=== PATIENT | male | born 1985 | race Caucasian/White ===

== ENCOUNTER 2019-06-10 16:54 | Emergency (ER) | payer OTHER ==
[~2019-06-10] VITALS: Ht 175.3 cm; Wt 65.8 kg
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
[2019-06-10 17:09] VITALS: BP 118/73
[2019-06-10] MEDS ORDERED: Ketorolac 30mg Inj IM ONE (17:45)
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
[2019-06-10] MEDS ORDERED: DICLOFENAC SODI50 MG ORAL (17:56)
[2019-06-10] MEDS ORDERED: ROBAXIN-750750 MG PO (17:56)
[2019-06-10 18:00] VITALS: BP 123/79
--- NOTE | 2019-06-10 18:00 | NUR ---
ER DISCHARGE NOTE: Patient is cleared to be discharged per ERMD, pt is aox4, on room air, with stable vital signs as documented. pt was given dc and prescription instructions and was able to verbalize understanding. pt id band removed. pt is able to ambulate with steady gait. pt took all belongings.
== END 2019-06-10 18:00 | disposition home or self-care (01) ==
LOC: EMR 17:25
DX: M54.2 Cervicalgia (principal); M25.512 Pain in left shoulder; M79.622 Pain in left upper arm
CPT/HCPCS: 96372; J1885; Z7502; 99283

== ENCOUNTER 2019-12-15 20:55 | Emergency (ER) | payer OTHER ==
[~2019-12-15] VITALS: Ht 175.3 cm; Wt 72.6 kg
[~2019-12-15 20:55] MED LIST: DICLOFENAC SODI50 MG ORAL; ROBAXIN-750750 MG PO
[2019-12-15 21:14] VITALS: BP 130/85
[2019-12-15] MEDS ORDERED: LORazepam 1mg tab ORAL ONE (21:30)
[2019-12-15] MEDS ORDERED: Lidocaine 1% MPF 10mg/ml 5ml INJ ONE (21:30)
[2019-12-15] MEDS ORDERED: Azithromycin 250mg tab ORAL ONE (21:30)
[2019-12-15 21:40] LABS: APPEARANCE,URINE CLEAR; BILIRUBIN, URINE NEGATIVE (NEGATIVE); COLOR,URINE PALE YELLOW; GLUCOSE, URINE (UA) NEGATIVE (NEGATIVE); KETONES,URINE NEGATIVE (NEGATIVE); LEUKOCYTE ESTERASE ,URINE NEGATIVE (NEGATIVE); NITRITE,URINE NEGATIVE (NEGATIVE); PH,URINE 7 (4.5-8.0); PROTEIN,URINE NEGATIVE (NEGATIVE); UROBILINOGEN,URINE NORMAL MG/DL (0.0-1.0)
--- NOTE | 2019-12-15 21:54 | Emergency Room Report ---
History of Present Illness General Chief Complaint: General Complaint Source: Patient Present Illness HPI 34-year-old male with PMHx of anxiety, depression, previous alcoholism (now in remission x 5 months going to Alcoholics Anonymous) presents to ED with multiple complaints. First complaint is panic attack. States he drank 4 cups of coffee today which started to get him anxious. He usually never drinks caffeine but wanted to drink coffee today. States he talked to his therapist who instructed him to come to ED if he continued to have symptoms. Pt has been compliant with all of his psychiatric medications, however, states that sometimes he get panic attacks that require him to come to the ED for abortive therapy like ativan. He is not chronically dependent on BDZ and is a recovering alcoholic. He denies Fever, chills, n/v/d, LONGORIA, rash, photophobia, vision changes, CP, sob, or any physical complaint of pain. He states this feels similar to his previous panic attacks and follows with a therapist. He denies any recent change in his medication Denies SI HI auditory or visual hallucinations. States "i always have a voice in my head" Pt also presents with concern for STI. He is sexually active with multiple partners and does not use condoms. He has been having green penile discharge and had a test result from his PMD that stated he had gonorrhea. His appointment for treatment is tomorrow in office, but he states he'd rather get treated in ED if possible. He denies scrotal pain / lesions, dysuria/hematuria, abdominal pain, fever, flank pain or other symptoms. The patient's symptoms were gradual onset, severity was mild, duration since 1 day Quality: anxious Past medical history: Bipolar, anxiety, depression, recovering alcoholic Past surgical history: Denies Smoking: Denies Alcohol use: Denies Drug use: Denies Review of systems: CONST: No fevers or chills, No night sweats PULMONARY: No productive cough, No shortness of breath CARDIAC: No chest pain, No palpitations GI: No vomiting, No diarrhea , No melena_or_BRBPR : No dysuria, No hematuria, No discharge NEURO: No new_focal_weakness_or_numbness, No confusion, No vision changes 14 point Review of Systems is otherwise negative except per HPI Physical Exam: GENERAL: Awake_alert_ nontoxic, no acute distress Spo2 99% on RA normal EYES: Extraocular muscles are intact. Conjunctivae clear. Lids without swelling. No lid lag or ptosis ENT: External nose and ear normal_in_appearance. Oropharynx clear. Head_ atraumatic, Moist_oral_mucosa NECK: No JVD. No meningismus. No thyromegaly. Supple. Trachea midline RESP: Normal respiratory effort. Symmetric rise. No stridor. Clear_to_ auscultation_No_rales_No_wheezes CARDIAC: Regular rate and regular rhytm. No_significant pedal edema. ABDOMEN: Soft. Nondistended. Nontender_No_rebound_or_guarding. exam; performed with male film processor JUAN MIGUEL Pham No penile discharge or lesions, normal testicular lie bilaterally, no TTP of testicles Circumcised MSK: Normal muscle tone, without rigidity. Extremities without asymmetric deformity or swelling. SKIN: Warm and dry. No visible cyanosis or pallor NEUROLOGIC: Alert, oriented x3. Motor_and_sensation_grossly_intact. No truncal ataxia. Gait_normal Psych: Normal mood and affect, normal judgment and insight - COORDINATION OF CARE Case was discussed with: Patient Medical Decision Making/Plan: Differential diagnosis includes anxiety attack, generalized anxiety disorder, stress reaction, among others. Patient has stable vitals and is neurologically intact. He denies any suicide attempt, overdose, or ingestion. Patient is a recovering alcoholic who has been sober for 5 months. He has outpatient psychiatrist who prescribes his medications for his bipolar disorder , but he refuses to be on scheduled benzodiazepines as an outpatient due to their addiction potential. I gave patient ativan 1 mg po here in ED with full relief of his panic attack . Pt has no subjective complaint of CP, sob, dyspnea on exertion or other anginal equivalent. No cardiac risk factors on HPI. He was also empirically treated for G/C due to concern for STI. UA is negative for bladder/kidney infection. exam was normal. Doubt epididymitis or testicular torsion. Pt was counseled to follow up with his psychiatrist in the morning and to refrain from triggers for his panic attacks like caffeine. Pt verbalizes his understanding. Safe sex practices were discussed. After serial exams in the emergency department, the patient remains sober and without any suicidal ideation, homicidal ideation or evidence of grave disability They have no focal neurologic deficits and were able to ambulate with a steady gait without assistance. The patients presentation seems to be consistent with anxiety, without any indication for emergency psychiatric evaluation. The patient appears to be stable for dc home and follow with psychiatry as an outpatient. Allergies: Coded Allergies: No Known Allergies (Unverified , 06/10/19) COVID-19 Screening Contact w/high risk pt: No Experienced COVID-19 symptoms?: No COVID-19 Testing performed NUCLEAR CONTROL OPERATOR: No Nursing Documentation-[facility] History Of Psychiatric Problem: Yes - anxiety, depression Physical Exam Vital Signs Date Time Temp Pulse Resp B/P (MAP) Pulse Ox O2 Delivery O2 Flow Rate FiO2 12/15/19 20:58 98.4 96 20 130/85 (100) 99 Room Air Sp02 EP Interpretation: reviewed, normal Medical Decision Making Diagnostic Impression: Primary Impression: Anxiety Additional Impressions: Penile discharge Encounter for assessment of STD exposure Last Vital Signs Date Time Temp Pulse Resp B/P (MAP) Pulse Ox O2 Delivery O2 Flow Rate FiO2 12/15/19 21:14 98.4 82 20 130/85 99 Room Air Disposition: HOME, SELF-CARE Admit Decision Time: 21:50 Condition: Stable Referrals: NON PHYSICIAN (PCP) Patient Instructions: Generalized Anxiety Disorder, Gonorrhea Additional Instructions: Instructions for patient/community theater actor: Follow up with your physician in 1-2 days. Practice safe sex. Use condoms. Do not drive or operate heavy machinery while on benzos. Avoid caffeine Do not drink alcohol for at least 1 week due to the high doses of abx you were given in ED Follow-up with your doctor sooner if your condition requires a more timely clinical reevaluation. Return to the emergency department immediately if you feel that your condition is worsening or if you have any new or concerning symptoms. Review your discharge instructions and take any prescriptions given as instructed. Rosa Yuan D.O. Dec 15, 2019 21:54
[2019-12-15 21:59] VITALS: BP 130/85
== END 2019-12-15 21:59 | disposition home or self-care (01) ==
LOC: EMR 21:03
DX: F41.9 Anxiety disorder, unspecified (principal); R36.9 Urethral discharge, unspecified; Z20.2 Contact with and (suspected) exposure to infections with a predominantly sexual mode of transmission; F32.9 Major depressive disorder, single episode, unspecified; F31.9 Bipolar disorder, unspecified
CPT/HCPCS: 81001; 96372; 96374; J0696; Q0144; Z7502; 99284

== ENCOUNTER 2019-12-21 14:23 | Emergency (ER) | payer OTHER ==
[~2019-12-21] VITALS: Ht 177.8 cm; Wt 72.6 kg
[2019-12-21 14:45] VITALS: BP 131/76
[2019-12-21] MEDS ORDERED: LORazepam 1mg tab ORAL ONE (15:00)
--- NOTE | 2019-12-21 15:00 | NUR ---
ED Nurse Note: Pt walked into ED for c/o anxiety. Pt wants to get Ativan shot. Pt is alert adn orientedx4, anxious. Denies SI, hallucinations, hearing voices. Pt is eatig in chair.
--- NOTE | 2019-12-21 15:08 | Emergency Room Report ---
History of Present Illness General Chief Complaint: General Complaint Source: Patient (Caryl Kearns) Present Illness HPI 34-year-old male presents to the emergency department requesting single abortive treatment of Ativan for his increased anxiety today. Patient reports history of anxiety and is currently taking Lexapro, Latuda and lamotrigine. Patient states that he did have an increase in his Latuda 1 week ago. He states that he has been noticing some increased anxiety. He describes his symptoms of generalized anxiousness, severe fatigue but inability to sleep. Patient states this is consistent with previous anxiety attacks he has had in the past. He states that he has an appointment with his therapist tomorrow and is also going to be requesting medication management appointment with his psychiatrist. Patient reports history of alcohol dependence and is currently 5 months sober. He de nies illicit drug use. Patient reports that he has been attending therapy and group meetings regularly. He denies SI or HI. He denies PSAs. 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 He denies chest pain, palpitations, shortness of breath, fevers, chills or paresthesias. He denies pain. (Caryl Kearns) Allergies: Coded Allergies: No Known Allergies (Unverified , 06/10/19) COVID-19 Screening Contact w/high risk pt: No Experienced COVID-19 symptoms?: No COVID-19 Testing performed AFTER SCHOOL PROGRAM TEACHER: No (Caryl Kearns) Patient History Past Medical History: see triage record, psych hx Past Surgical History: none Pertinent Family History: none Social History: Reports: alcohol use - 5 months sober Reviewed Nursing Documentation: PMH: Agreed; PSxH: Agreed (Caryl Kearns) Nursing Documentation-PMH Past Medical History: No History, Except For (Caryl Kearns) Review of Systems All Other Systems: negative except mentioned in HPI (Caryl Kearns) Physical Exam Vital Signs Date Time Temp Pulse Resp B/P (MAP) Pulse Ox O2 Delivery O2 Flow Rate FiO2 12/21/19 14:24 97.9 84 16 124/72 (89) 100 Room Air Sp02 EP Interpretation: reviewed, normal General Appearance: no apparent distress, alert, GCS 15, non-toxic Head: normocephalic, atraumatic Eyes: bilateral eye normal inspection, bilateral eye PERRL ENT: hearing grossly normal, normal voice Neck: full range of motion Respiratory: chest non-tender, lungs clear, normal breath sounds, no respiratory distress, no accessory muscle use, no wheezing, speaking full sentences Cardiovascular #1: regular rate, rhythm Gastrointestinal: non tender, soft Musculoskeletal: normal range of motion, gait/station normal, non-tender Neurologic: alert, motor strength/tone normal, oriented x3, sensory intact, responsive, speech normal, grossly normal Psychiatric: judgement/insight normal, memory normal, mood/affect normal, no suicidal/homicidal ideation, no delusions Skin: no rash, normal color (Caryl Kearns) Medical Decision Making PA Attestation Dr. Chaudhry Is my supervising Physician whom patient management has been discussed with. (Caryl Kearns) Diagnostic Impression: Primary Impression: Anxiety ER Course 34-year-old male presents to the emergency department requesting single abortive treatment of Ativan for his increased anxiety today. Patient reports history of anxiety and is currently taking Lexapro, Latuda and lamotrigine. Patient states that he did have an increase in his Latuda 1 week ago. He states that he has been noticing some increased anxiety. He describes his symptoms of generalized anxiousness, severe fatigue but inability to sleep. Patient states this is consistent with previous anxiety attacks he has had in the past. He states that he has an appointment with his therapist tomorrow and is also going to be requesting medication management appointment with his psychiatrist. Patient reports history of alcohol dependence and is currently 5 months sober. He denies illicit drug use. Patient reports that he has been attending therapy and group meetings regularly. He denies SI or HI. He denies PSAs. 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 He denies chest pain, palpitations, shortness of breath, fevers, chills or paresthesias. He denies pain. Ddx considered but are not limited to anxiety, [place], PE, asthma, thyroid storm, hyperthyroid, EPS Vital signs: are WNL, pt. is afebrile H&PE are most consistent with episode of increased anxiety- break through. Pt. w. hx of anxiety currently being managed with lexapro. ORDERS: none required at this time, the diagnosis is clinical ED INTERVENTIONS: -- 1mg Ativan PO D/w pt. will rx small qty of Buspar to use in the meantime ( until his medication management appt with his psych. ) for break through anxiety attacks. D/w pt. this medication is advertised to be non-habit forming. -I do not identify an emergent condition at this time. With current presentation, pt. is stable for close outpatient follow up and conservative treatment. D/w pt. to return promptly to ED with worsening or new symptoms.- Pt. verbalizes' understanding and agreement with proposed treatment plan. DISCHARGE: At this time pt. is stable for d/c to home. Will provide printed leila ent care instructions, and any necessary prescriptions. Care plan and follow up instructions have been discussed with the patient prior to discharge. (Caryl Kearns) Last Vital Signs Date Time Temp Pulse Resp B/P (MAP) Pulse Ox O2 Delivery O2 Flow Rate FiO2 12/21/19 14:24 97.9 84 16 124/72 (89) 100 Room Air (Caryl Kearns) Disposition: HOME, SELF-CARE Condition: Stable Scripts Buspirone Hcl* (BUSPAR*) 10 Mg Tablet 10 MG ORAL THREE TIMES A DAY, #12 TAB 0 Refills Prov: Caryl Kearns 12/21/19 Referrals: [facility] Patient Instructions: Buspirone tablets, Medical Screening Exam Additional Instructions: Take medications as directed. Follow up with a Mental Health Specialist/ Psychiatrist in 3 days, even if your symptoms have resolved. --Please review [facility] resource information provided if you are unable to follow up with your psychiatrist. Return sooner to ED if new symptoms occur, or current symptoms become worse. - Please note that this Emergency Department Report was dictated using [employer] safety manager technology software, occasionally this can lead to erroneous entry secondary to interpretation by the dictation equipment. Caryl Kearns Dec 21, 2019 15:08 Blake Chaudhry MD Dec 23, 2019 10:11
[2019-12-21] MEDS ORDERED: BUSPAR10 MG ORAL (15:10)
[2019-12-21 15:28] VITALS: BP 126/80
--- NOTE | 2019-12-21 15:29 | NUR ---
ER DISCHARGE NOTE: Patient is cleared to be discharged per ERMD, pt is aox4, on room air, with stable vital signs. pt was given dc and prescription instructions, pt was able to verbalize understanding, pt id band removed. pt is able to ambulate with steady gait. pt took all belongings.
== END 2019-12-21 15:30 | disposition home or self-care (01) ==
LOC: EMR 15:05
DX: F41.9 Anxiety disorder, unspecified (principal); Z79.899 Other long term (current) drug therapy
CPT/HCPCS: 99282

== ENCOUNTER 2020-01-06 12:36 | Emergency (ER) | payer OTHER ==
[~2020-01-06] VITALS: Ht 177.8 cm; Wt 72.6 kg
[~2020-01-06 12:36] MED LIST changes: +BUSPAR10 MG ORAL
[2020-01-06 13:15] VITALS: BP 109/73
--- NOTE | 2020-01-06 13:25 | Emergency Room Report ---
History of Present Illness General Chief Complaint: Pain Source: Patient Present Illness HPI Patient has history of anxiety. Patient states that over the last couple weeks he has had intermittent pain which starts from his bilateral groin area and radiates down his thigh and then into his back and then up into his chest. The pain is intermittent does not seem to be aggravated by anything. He states that he had does have difficulty initiating urine stream. Denies any difficulty with bowel movements nausea vomiting. Denies any testicular abnormalities or testicular pain. Denies lymphadenopathy or swelling or any abnormality. No other modifying factors. No other associated signs and symptoms. No other complaints were noted. Symptoms noted to be mild. Patient declined a visual e xam of the groin area. He states that he looked at himself is all normal. Allergies: Coded Allergies: No Known Allergies (Unverified , 06/10/19) COVID-19 Screening Contact w/high risk pt: No Experienced COVID-19 symptoms?: No COVID-19 Testing performed [employer]: Yes COVID-19 Screening: Negative COVID-19 COVID-19 Testing Source: 5 months ago unknown location Patient History Past Medical History: none Past Surgical History: none Pertinent Family History: none Social History: Denies: smoking, alcohol use, drug use Reviewed Nursing Documentation: PMH: Agreed; PSxH: Agreed Nursing Documentation-PMH Past Medical History: No Stated History Review of Systems All Other Systems: negative except mentioned in HPI Physical Exam Vital Signs Date Time Temp Pulse Resp B/P (MAP) Pulse Ox O2 Delivery O2 Flow Rate FiO2 01/06/20 12:47 98.2 74 18 109/73 (85) 100 Sp02 EP Interpretation: reviewed, normal General Appearance: normal inspection, well appearing, no apparent distress, alert Head: atraumatic Eyes: bilateral eye normal inspection ENT: normal ENT inspection, hearing grossly normal, normal voice Neck: normal inspection, full range of motion, supple, no bony tend Respiratory: normal inspection, lungs clear, normal breath sounds, no respiratory distress, no retraction, no wheezing Cardiovascular #1: regular rate, rhythm, no edema Gastrointestinal: normal inspection, normal bowel sounds, non tender, soft, no guarding, no hernia Genitourinary: no CVA tenderness Musculoskeletal: normal inspection, back normal, normal range of motion Neurologic: alert, responsive, speech normal, normal inspection Psychiatric: normal inspection, judgement/insight normal, mood/affect normal Skin: no rash Medical Decision Making Diagnostic Impression: Primary Impression: Pain Additional Impressions: Anxiety UTI (urinary tract infection) ER Course Patient presents emergency department today complaint of nonspecific pain around the area of his groin and thighs in the back. There is no evidence any abnormality. Urine test does show urine to be a little cloudy. Will attempt some Cipro antibiotics for 7 days to see if there is any improvement.. Differential diagnosis include muscle strain versus UTI versus a prostate infection. Given patient's presentation I felt that patient could have some back strain or perhaps even some early urinary retention however there is no evidence any definite infection. Recommend he have outpatient follow-up with primary care physician for further evaluation. Currently no evidence of emergency condition at this time. Patient is advised to follow up with primary doctor in 2-3 days and return the emergency room for any worsening symptoms and as needed. Labs Test 01/06/20 13:18 Urine Color Yellow Urine Appearance Cloudy Urine pH 8 (4.5-8.0) Urine Specific [place] 1.010 (1.005-1.035) Urine Protein Negative (NEGATIVE) Urine Glucose (UA) Negative (NEGATIVE) Urine Ketones Negative (NEGATIVE) Urine Blood Negative (NEGATIVE) Urine Nitrite Negative (NEGATIVE) Urine Bilirubin Negative (NEGATIVE) Urine Urobilinogen Normal MG/DL (0.0-1.0) Urine Leukocyte Esterase 1+ (NEGATIVE) Urine RBC 0 /HPF (0 - 0) Urine WBC 0-2 /HPF (0 - 0) Urine Squamous Epithelial Cells Occasional /LPF Urine Amorphous Sediment Many /LPF (NONE) Urine Bacteria Occasional /HPF (NONE) Last Vital Signs Date Time Temp Pulse Resp B/P (MAP) Pulse Ox O2 Delivery O2 Flow Rate FiO2 01/06/20 12:47 98.2 74 18 109/73 (85) 100 Disposition: HOME, SELF-CARE Condition: Stable Scripts Ibuprofen* (MOTRIN*) 600 Mg Tablet 600 MG ORAL Q6H PRN for FOR PAIN, #20 TAB 0 Refills Prov: Kush Genao MD 01/06/20 Referrals: [facility]ERR[facility] (PCP) Kush Genao MD Jan 06, 2020 13:25
[2020-01-06 13:27] LABS: APPEARANCE,URINE CLOUDY; BILIRUBIN, URINE NEGATIVE (NEGATIVE); GLUCOSE, URINE (UA) NEGATIVE (NEGATIVE); KETONES,URINE NEGATIVE (NEGATIVE); LEUKOCYTE ESTERASE ,URINE 1+ (NEGATIVE); NITRITE,URINE NEGATIVE (NEGATIVE); PH,URINE 8 (4.5-8.0); PROTEIN,URINE NEGATIVE (NEGATIVE); UROBILINOGEN,URINE NORMAL MG/DL (0.0-1.0)
[2020-01-06 13:34] LABS: COLOR,URINE YELLOW
[2020-01-06] MEDS ORDERED: IBUPROFEN600 M1 ORAL (13:38)
[2020-01-06] MEDS ORDERED: CIPROFLOXACIN500 M2 ORAL (13:42)
[2020-01-06 13:54] VITALS: BP 109/73
== END 2020-01-06 13:55 | disposition home or self-care (01) ==
LOC: EMR 13:00
DX: R52 Pain, unspecified (principal); F41.9 Anxiety disorder, unspecified; N39.0 Urinary tract infection, site not specified
CPT/HCPCS: 81003; Z7502; 99282